=== PATIENT | male | born 1950 | race Caucasian/White ===

== ENCOUNTER 2016-09-26 18:19 | Emergency (ER) | payer MEDICARE, OTHER ==
[2016-09-26] MEDS ORDERED: CYCLOBENZAPRINE 10 MG TAB ONE (19:15)
[2016-09-26] MEDS ORDERED: KETOROLAC 60 MG/2 ML VIAL IM ONE (19:16)
== END 2016-09-26 20:32 | disposition home or self-care (01) ==
LOC: ER 18:19
DX: M25.511 Pain in right shoulder (principal)
CPT/HCPCS: 72050; 96372